=== PATIENT | female | born 1970 | race Native Hawaiian/Other Pacific Islander ===

== ENCOUNTER 2023-11-25 12:45 | Emergency (ER) | payer OTHER, SELFPAY ==
[2023-11-25 12:49] VITALS: BP 130/63
--- NOTE | 2023-11-25 13:30 | ED.GENMED ---
History of Present Illness
General
Chief Complaint: Skin Problem
Time Seen by Provider: 11/25/23 13:17
Travel History
Have you had any contact with someone who has COVID-19?: No
Do you have any symptoms of coronavirus? Fever > 100 degrees, chills, cough, shortness of breath, sore throat, loss of taste or smell, muscle aches, or headache?: No
History of Present Illness
History of Present Illness:
53-year-old female presents the emergency department for evaluation of a left middle finger injury sustained initially last week. She states she was bitten by her dog and was initially seen at [facility], she received suture closure of the wound
and was started on antibiotics. She is still taking his antibiotics. Saw her primary care physician late last week where an outpatient x-ray was obtained showing a distal phalangeal fracture and resultant mallet deformity. She is scheduled to see
hand surgery tomorrow. Her doctor saw her today and was concerned for possible cellulitis. Patient denies fevers or chills
Review of Systems
Review of Systems
Allergies reviewed?: Yes
All Other Systems: ROS reviewed and negative except as documented in HPI and ROS
Phy Exam
Physical Exam
Physical Exam:
GEN: Well appearing, NAD, WDWN
HEENT: Oral mucosa moist, no scleral icterus
Cardiac: Regular rate
Lung: No respiratory distress, no tachypnea
MSK: Mallet finger deformity of the distal phalanx of the left middle finger. There is a well-approximated wound to the volar DIP joint, no erythema or wound discharge
Skin: Good color, no pallor or jaundice, no rashes
Neuro: AO x3, moves all extremities freely
Psych: Calm, cooperative
Course
Orders/Labs/Results
Orders:
Orders
11/25/23 12:47
Finger(s)/Thumb 2 View Lt [CR Finger(s)/thumb Min 2 Vw Lt] Urgent
Comment:
Reason For Exam: pain
Indicate Which Finger:: Middle Finger
Vital Signs
Initial and Last Documented VS:
Initial Vital Signs
Temp Pulse Resp BP Pulse Ox
98.6 F 98 18 130/63 100
11/25/23 12:49 11/25/23 12:49 11/25/23 12:49 11/25/23 12:49 11/25/23 12:49
Last Documented Vital Signs
Temp Pulse Resp BP Pulse Ox
98.6 F 98 18 130/63 100
11/25/23 12:49 11/25/23 12:49 11/25/23 12:49 11/25/23 12:49 11/25/23 12:49
MDM/Problems Addressed
MDM/Problems Addressed:
Dressing was taken down and the wound was irrigated copiously. Dressed with bacitracin and nonstick gauze as well as a extension stack splint. Patient will see hand surgery tomorrow. No clinical evidence of active infectious etiology.
*Critical Care Note
Total Time (30-74mins, 75-104mins- exclusive of procedures): Not Applicable
ED Attending Note
-
Portions of this chart may have been created with voice recognition software.� Occasional wrong word or��sound alike� substitutions may have occurred due to the inherent limitations of voice recognition software.
Discharge Plan
Departure
Patient Disposition: Home (Routine Discharge)
Date of Disposition: 11/25/23
Time of Disposition: 14:02
Patient with high blood pressure during this ER visit?: No
Discharge Problem:
Closed fracture of distal phalanx of left middle finger
Referrals:
Nathan Quick MD [Active] -
Tejal Boyd MD [Family Provider] -
Activity Restrictions/Additional Instructions:
See Orthopedics tomorrow
Keep the splint on until you see Dr Quick
Interventions
Interventions:
*Risk Screen - Suicide Last Done: 11/25/23 12:49
*General Assessment Last Done: 11/25/23 12:49
*Neglect/Abuse Screening Last Done: 11/25/23 12:49
*ED COVID-19 Vaccine History Last Done: 11/25/23 12:49
*Nursing Disposition Last Done: 11/25/23 14:47
ED-Skin Assessment Last Done: 11/25/23 13:55
Discharge Date and Time
Discharge Date/Time: 11/25/23 14:48
== END 2023-11-25 14:48 | disposition home or self-care (01) ==
LOC: EMR 12:45
PROVIDERS: EMERGENCY PHYSICIAN Emergency Medicine; FAMILY PHYSICIAN Internal Medicine
DX: S62.633A Displaced fracture of distal phalanx of left middle finger, initial encounter for closed fracture (principal); W54.0XXA Bitten by dog, initial encounter
CPT/HCPCS: 99282